=== PATIENT | male | born 1960 | race Caucasian/White ===

== ENCOUNTER 2022-03-08 16:58 | Inpatient (IN) ==
--- NOTE | 2022-03-08 17:51 | Internal Med History&Physical ---
HPI History of Present Illness Patient information: Note initiated : 03/08/22 at 5:48 pm Service Date, if different from initiated Date: [] Patient: Gaudencio Nichols a 61 y/o M admitted on for Hip Fracture . Chief Complaint: [fall with hip pain] Chief complaint: fall with hip pain History of present illness: Mr. Nichols is a 61 year old M history of drug abuse, hepatitis C, metastatic hepatic cell carcinoma, presenting with fall with right sided hip fracture. Patient fell about a week ago and today repeat imaging with PET CT as part of the cancer surveillance reviewed right hand femoral neck fracture. He was in [facility] ER and the ER physicians contacted the orthopedic surgeons Dr. Etienne who would be willing to do a nail fixations. Patient would be admitted to my service with Dr. Etienne be consulted for the surgical management. Physical therapy and occupational therapy will be consulted for post-surgical evaluation and assessment. Constitutional Constitutional: Absent chills, excessive sweating, fatigue, fever(s) or weakness EENT Eyes: Absent blurry vision, change in vision, loss of vision or other visual disturbances Ears: Absent decreased hearing or tinnitus Nose, mouth and throat: Absent abnormal hearing, dry mouth, headache(s), nasal congestion or sore throat Cardiovascular Cardiovascular: Absent chest pain, chest pain at rest, edema, irregular heart rhythm or palpatations Respiratory Respiratory: Absent cough, dyspnea or wheezing Gastrointestinal Gastrointestinal: Absent abdominal pain, constipation, diarrhea, nausea or vomiting Musculoskeletal Musculoskeletal: Present arthralgias, deformity and limited range of motion; Ab sent back pain, muscle cramps, muscle weakness or numbness Integumentary Integumentary: Absent lesions, rash or wounds Neurological Neurological: Absent focal weakness, headache(s) or numbness Psychiatric Psychiatric: Absent anxiety, depression or hallucinations PFSH PFSH All Active Problems (Updated 03/08/22 @ 17:56 by Erik Ni MD) Fracture of femoral neck, right, closed (Acute) Port-A-Cath in place (Chronic) Methamphetamine use (Chronic) History of tobacco use (Chronic) Depression (Chronic) History of hepatitis C (Chronic) Hypertension (Chronic) Liver cancer (Chronic) Spine pain (Chronic) Rib pain (Chronic) Balance problem (Chronic) Hand tingling (Chronic) Other low back pain (Chronic) Dizziness (Chronic) Back pain (Chronic) Sleeping difficulty (Chronic) Nausea (Chronic) Liver mass (Chronic) Pain in right femur (Chronic) Chronic viral hepatitis C (Chronic) Secondary malignant neoplasm of bone (Chronic) Liver cell carcinoma (Chronic) Medical History (Updated 03/08/22 @ 17:56 by Erik Ni MD) Back pain Balance problem Chronic viral hepatitis C Depression Dizziness Hand tingling History of hepatitis C History of tobacco use Hypertension Liver cancer Liver cell carcinoma Liver mass Methamphetamine use Nausea Other low back pain Pain in right femur Metastasis Port-A-Cath in place Rib pain Secondary malignant neoplasm of bone Sleeping difficulty Spine pain Surgical History (Updated 03/07/22 @ 06:59 by Sarah Miller) History of herniorrhaphy Family History (Updated 03/07/22 @ 07:00 by Sarah Miller) Mother Diabetes Social History (Updated 03/07/22 @ 07:01 by Sarah Miller) marital status: single education level: elementary school occupational status: disabled smoking status: Former smoker smoking status start date: 08/11/78 smoking status stop date: 08/11/18 alcohol intake frequency: does not drink substance use type: amphetamines MEDS/ALLERGIES Home Medications and Allergies Home Medications Medication Instructions Recorded Confirmed Type gabapentin 300 mg capsule 300 mg .Route .COMPLEX #90 caps 03/05/22 03/05/22 Rx (Neurontin) Allergies Allergy/AdvReac Type Severity Reaction Status Date / Time Penicillins Allergy Unknown Unknown Unverified 03/05/22 14:25 morphine sulfate Allergy Unknown Unknown Uncoded 03/05/22 14:25 EXAM Constitutional General appearance: cooperative and no acute distress Head Head exam: Present atraumatic and normocephalic Eye Eye exam: Present EOMI and PERRL ENT ENT exam: Present mucous membranes moist, normal exam and normal external ear exam Neck Neck exam: Present normal inspection; Absent lymphadenopathy, tenderness or thyromegaly Respiratory Respiratory exam: Absent accessory muscle use, respiratory distress or wheezes Cardiovascular Cardiovascular exam: Present normal rate and rhythm; Absent JVD GI/Abdominal GI/Abdominal exam: Present normal bowel sounds and soft; Absent organomegaly or tenderness Rectal Rectal exam: Present deferred Extremities Exam Extremities exam: Present normal capillary refill and tenderness; Absent full ROM or normal inspection Neurological Exam Neurological exam: Present alert, CN II-XII intact and oriented X3; Absent motor sensory deficit Psychiatric Psychiatric exam: Present normal affect and normal mood; Absent anxious or depressed Skin Skin exam: Present dry and intact A/P Assessment and plan (1) Chronic viral hepatitis C: Status: Chronic (2) Secondary malignant neoplasm of bone: Status: Chronic (3) Liver cell carcinoma: Status: Chronic (4) Fracture of femoral neck, right, closed: Status: Acute Narrative A/P Narrative: Assessment and Plans: 1. Right femoral neck pathologic fracture: Inpatient med surg Troponin and ECG Dr. Etienne for surgical management NPO with NS@100cc/hr Bedrest Tylenol PRN mild pain Oxycodone PRN moderate pain Dilaudid IV PRN severe pain Physical therapy Occupational therapy Case management consult 2. h/o hepatic cell carcinoma with metastasis: Continue outpatient follow up with oncology Fentanyl patch in addition to other narcotics used for the fracture 3. IV drug use: Will be very cautious about narcotics use; deescalate as soon as it is appropriate GI ppx: not currently indicated DVT ppx: SCDs Code status: Full Prognosis: stable Disposition: inpatient med surg Time Spent With Patient Time: Total time spent is greater than 50% in coordination of care (as documented) at patient's floor/unit and/or counseling patient: Total time spent with greater than 50% in coordination of care (as documented) at patient's floor/unit and/or counseling patient:: 50 - 70 minutes
[2022-03-08] MEDS ORDERED: ACETAMINOPHEN 325 MG TABLET PO PRN (19:07)
[2022-03-08] MEDS ORDERED: ONDANSETRON 4 MG/2 ML VIAL IV PRN ×2 (19:07→21:29)
[2022-03-08] MEDS ORDERED: IPRATROPIUM/ALBUTEROL 3 ML AMPUL.NEB NEB PRN ×2 (19:07→21:29)
[2022-03-08] MEDS ORDERED: traZODone HCL 50 MG TABLET PO PRN (19:07)
[2022-03-08] MEDS: 0.9 % SODIUM CHLORIDE 1,000 ML IV SCH ×2 (19:16→23:36)
[2022-03-08] MEDS: HYDROmorphone 0.5 MG/0.5 ML SYRINGE IV PRN ×2 (19:16→23:35)
[2022-03-08] MEDS ORDERED: HYDROmorphone 0.5 MG/0.5 ML SYRINGE ONE (19:22)
[2022-03-08] MEDS ORDERED: KETAMINE 50 MG/ML Syringe (ANEST) IV ONE (20:55)
[2022-03-08] MEDS ORDERED: GLYCOPYRROLATE 0.2 MG/ML VIAL IV ONE (20:55)
[2022-03-08] MEDS ORDERED: MIDAZOLAM 2 MG/2 ML VIAL ONE (20:55)
[2022-03-08] MEDS ORDERED: MAGNESIUM SULFATE 2 GM/50 ML BAG IV ONE (20:55)
[2022-03-08] MEDS ORDERED: ROPIVACAINE HCL/PF 20 ML VIAL IJ ONE (20:55)
[2022-03-08] MEDS ORDERED: SUGAMMADEX SODIUM 200 MG/2 ML VIAL IV ONE (20:55)
[2022-03-08] MEDS ORDERED: HYDROmorphone 1 MG/ML SYRINGE ONE (20:55)
[2022-03-08] MEDS ORDERED: ONDANSETRON 4 MG/2 ML VIAL ONE (20:55)
[2022-03-08] MEDS ORDERED: fentaNYL 100 MCG/2 ML VIAL IV ONE (20:55)
[2022-03-08] MEDS ORDERED: LIDOCAINE HCL/PF 100 MG/5 ML SYRINGE IV ONE (20:55)
[2022-03-08] MEDS ORDERED: methylPREDNISolone SOD SUCC 125 MG/2 ML VIAL ONE (20:55)
[2022-03-08] MEDS ORDERED: ROCURONIUM 10 MG/ML ML IV ONE (20:55)
[2022-03-08] MEDS ORDERED: TRANEXAMIC ACID 1,000 MG/10 ML VIAL ONE (20:55)
[2022-03-08] MEDS ORDERED: PROPOFOL 200 MG/20 ML VIAL IV ONE (20:55)
[2022-03-08] MEDS ORDERED: DEXAMETHASONE 10 MG/ML VIAL ONE (20:55)
[2022-03-08] MEDS ORDERED: ceFAZolin 2 GM in DEXTROSE 5% IN WATER 50 ML IV SCH (21:00)
[2022-03-08] MEDS ORDERED: METOCLOPRAMIDE 10 MG/2 ML VIAL IV PRN (21:29)
[2022-03-08] MEDS ORDERED: MEPERIDINE 25 MG/ML VIAL IV PRN (21:29)
[2022-03-08] MEDS ORDERED: METHOCARBAMOL 1,000 MG/10 ML VIAL IV PRN (21:29)
[2022-03-08] MEDS ORDERED: LACTATED RINGERS 250 ML IV PRN (21:29)
[2022-03-08] MEDS ORDERED: fentaNYL 100 MCG/2 ML VIAL IV PRN (21:29)
[2022-03-08] MEDS ORDERED: KETOROLAC 30 MG/ML VIAL IV PRN (21:29)
[2022-03-08] MEDS ORDERED: NALOXONE HCL 0.4 MG/ML VIAL IV PRN (21:29)
[2022-03-08] MEDS ORDERED: ACETAMINOPHEN 1,000 MG/100 ML BAG IV ONE (21:29)
[2022-03-08] MEDS ORDERED: HYDROmorphone 0.5 MG/0.5 ML SYRINGE IV PRN (21:29)
[2022-03-08] MEDS ORDERED: MEPERIDINE 50 MG/ML VIAL IM PRN (21:29)
[2022-03-08] MEDS ORDERED: PROMETHAZINE 25 MG/ML VIAL IV PRN (21:29)
[2022-03-08] MEDS ORDERED: PROMETHAZINE 25 MG/ML VIAL IM PRN (21:29)
[2022-03-08] MEDS ORDERED: FLUMAZENIL 0.1 MG/ML ML IV PRN (21:29)
[2022-03-08] MEDS ORDERED: METOPROLOL TARTRATE 5 MG/5 ML VIAL IV PRN (21:29)
[2022-03-08] MEDS ORDERED: LACTATED RINGERS 1,000 ML IV SCH (21:30)
[2022-03-08] MEDS ORDERED: KETOROLAC 60 MG/2 ML VIAL IM ONE (21:32)
[2022-03-08] MEDS ORDERED: POLYETHYLENE GLYCOL 3350 17 GM PACKET PO PRN (21:59)
[2022-03-08] MEDS ORDERED: FLEETS ADULT ENEMA PR PRN (21:59)
[2022-03-08] MEDS ORDERED: BISACODYL 10 MG SUPP.RECT PR PRN (21:59)
--- NOTE | 2022-03-08 21:59 | Brief Operative Note ---
Brief Operative Note Date of procedure: 03/08/22 Pre-op diagnosis: Right pathologic base of femoral neck fracture Post-op diagnosis: same Procedure: Open treatment internal fixation of right base of neck hip fracture with intramedullary fixation Grafts/Implants: Yes (Van Lear gamma [id number] odalys, 100 lag screw) Anesthesia: GLMA Findings: base of neck fracture Complications: none Surgeon: Juan Swain Court Specialist: Willian Lemos Estimated blood loss (cc): 150 Specimens Removed/Pathology: none sent Condition: stable Disposition: PACU Operative Note Operative Note: Name of the operating practitioner/proceduralist: [Surgeon] Assistants: [auction assistant] Procedure performed: [Procedure] Preoperative diagnosis: [pre-op dx] Postoperative diagnosis: [Post-op dx] Findings: [detail] Specimens removed: [none] Estimated blood loss (cc): [#] Any complications: [details] Detailed account of the findings at surgery: [details] Details of the surgical technique: [details]
[2022-03-08] MEDS ORDERED: METHOCARBAMOL 1,000 MG/10 ML VIAL ONE (23:06)
[2022-03-08] MEDS: SENNOSIDES 1 TABLET PO SCH (23:33)
[2022-03-08] MEDS: DOCUSATE SODIUM 100 MG CAPSULE PO SCH (23:35)
[2022-03-08] MEDS: 0.9 % SODIUM CHLORIDE 10 ML SYRINGE IV SCH (23:37)
[2022-03-09] MEDS: HYDROmorphone 0.5 MG/0.5 ML SYRINGE IV PRN ×6 (03:10→19:37)
[2022-03-09] MEDS ORDERED: ceFAZolin 2 GM in DEXTROSE 5% IN WATER 50 ML IV SCH (05:00)
[2022-03-09] MEDS ORDERED: ceFAZolin 1 GM VIAL ONE ×2 (05:15→07:23)
[2022-03-09] MEDS: ceFAZolin 2 GM in DEXTROSE 5% IN WATER 50 ML IV SCH ×2 (05:26→07:18)
[2022-03-09] MEDS: 0.9 % SODIUM CHLORIDE 10 ML SYRINGE IV SCH ×3 (05:28→22:13)
[2022-03-09] MEDS: 0.9 % SODIUM CHLORIDE 1,000 ML IV SCH ×3 (05:28→19:36)
[2022-03-09] MEDS: oxyCODONE HCL 5 MG TABLET PO PRN ×2 (05:57→17:03)
[2022-03-09 06:13] LABS: Basophils # (Auto) 0.01 K/mcL (0.00-0.30); Basophils % (Auto) 0.1 % (0.0-2.0); Eosinophils # (Auto) 0 K/mcL (0.00-0.70); Eosinophils % (Auto) 0 % (0.0-7.0); Hematocrit 40.2 % (40.1-51.0); Hemoglobin 13.8 g/dL (13.7-17.5); Lymphocytes % (Auto) 3.8 % (15.5-49.0); Mean Cell Volume 89.9 fL (80.0-100.0); Mean Corpuscular HGB Conc 34.3 g/dL (31.0-36.0); Mean Platelet Volume 9.8 fL (7.4-10.4); Monocytes # (Auto) 0.19 K/mcL (0.10-0.90); Monocytes % (Auto) 1.8 % (1.0-12.0); Neutrophils % (Auto) 93.9 % (38.0-78.0); Platelet Count 172 K/mcL (140-440); RBC 4.47 M/mcL (4.63-6.08); Red Cell Distribution Width 12.4 % (11.5-14.5); WBC 10.5 K/mcL (4.5-11.0)
[2022-03-09 06:38] LABS: Blood Urea Nitrogen 12 mg/dL (6-20); Calcium 9.4 mg/dL (8.6-10.4); Carbon Dioxide 25 mmol/L (22-30); Chloride 99 mmol/L (96-108); Glomerular Filtration Rate 103; Glucose 214 mg/dL (70-105)
--- NOTE | 2022-03-09 08:46 | XRay Report ---
HISTORY: FINDINGS: IMPRESSION: 0.9 minutes of fluoroscopy time was used Interpreted and Authenticated by: Anders Byrd 03/09/22
--- NOTE | 2022-03-09 09:04 | Orthopedic Progress Note ---
SUBJECTIVE Subjective Patient information: Note initiated : 03/09/22 at 9:02 am Service Date, if different from initiated Date: [] Patient: Gaudencio Nichols 61 y/o M admitted on 03/08/22 for Hip Fracture . Chief Complaint: Mild to moderate pain. Pt concerned about cancer dx. Constitutional Vitals: Vital Signs Temp Pulse Resp BP Pulse Ox O2 Del Method O2 Flow Rate 98 F 81 20 162/104 97 1 03/09/22 07:10 03/09/22 07:10 03/09/22 07:10 03/09/22 07:10 03/09/22 07:10 03/09/22 07:10 03/09/22 07:45 Period Temp Pulse Resp BP Sys/Fowler Pulse Ox O2 Del Method O2 Flow Rate Last 24 Hr 97.3 F-98.6 F 73-90 14-20 125-163/81-111 94-100 Nasal Cannula- Room Air 1-6 Intake and Output 03/08/22 03/09/22 03/09/22 21:59 05:59 13:59 Intake Total 50 1187 290 Output Total 1175 Balance 50 12 290 Weight 190 lb Intake & Output: Intake & Output 03/08/22 03/09/22 03/09/22 21:59 05:59 13:59 Intake Total 50 1187 290 Output Total 1175 Balance 50 12 290 Weight 190 lb Intake: IV 50 533 50 Sodium Chloride 0.9% 1,000 ml @ 433 100 mls/hr IV .Q10H [facility] Rx#: [id number] Ancef 2 gm In Dextrose 5% in 50 50 Water 50 ml @ 100 mls/hr IV Q8H [facility] Rx#:[id number] Oral 654 240 Output: Urine Catheter Amount 675 Straight 675 Void Amount 500 Other: Meal Breakfast Percent of Meal Consumed 100% Feeding Ability Independent Urine Appearance Clear Straight Clear Urine Color Bright Yellow Straight Dark Yellow OBJ DATA Labs CBC & Chem 7: 03/09/22 05:35 03/09/22 05:35 Labs: Abnormal Lab Results 03/09/22 03/09/22 03/08/22 05:35 05:35 19:19 RBC 4.47 L Neut % (Auto) 93.9 H Lymph % (Auto) 3.8 L Lymph # (Auto) 0.40 L Absolute Neutrophils 9.90 H Glucose 214 H POC Troponin I 0 L Bandages c/d/i NVI-distal Meds: Medications Acetaminophen (Acetaminophen 325 Mg Tablet) 650 mg PO Q6HP PRN; Protocol PRN Reason: Per Pain Protocol/Fever > 101 Albuterol/Ipratropium (Ipratropium/Albuterol 3 Ml Ampul.Neb) 3 ml NEB Q4HRT PRN PRN Reason: Wheezing Bisacodyl (Bisacodyl 10 Mg Supp.Rect) 10 mg SD Q2-3DAYS PRN PRN Reason: Constipation Cefazolin Sodium (Cefazolin 1 Gm Vial) 2 gm IV Q8H [facility] Stop: 03/09/22 13:01 Docusate Sodium (Docusate Sodium 100 Mg Capsule) 100 mg PO BID [facility] Last Admin: 03/08/22 23:35 Dose: 100 mg Heparin Sodium (Porcine) (Heparin 5,000 Unit/Ml Vial) 5,000 unit SQ Q12 [facility] Hydromorphone HCl (Hydromorphone 0.5 Mg/0.5 Ml Syringe) 0.5 mg IV Q2HP PRN; Protocol PRN Reason: Per Pain Protocol Last Admin: 03/09/22 07:19 Dose: 0.5 mg Sodium Chloride (Sodium Chloride 0.9%) 1,000 mls @ 100 mls/hr IV .Q10H [facility] Last Admin: 03/09/22 05:28 Dose: Not Given Morphine Sulfate (Morphine 4 Mg/Ml Vial) 0 mg IV Q1HP PRN; Protocol PRN Reason: Per Pain Protocol Ondansetron HCl (Ondansetron 4 Mg/2 Ml Vial) 4 mg IV Q6HP PRN PRN Reason: Nausea And Vomiting Oxycodone HCl (Oxycodone Hcl 5 Mg Tablet) 10 mg PO Q4HP PRN; Protocol PRN Reason: Per Pain Protocol Last Admin: 03/09/22 05:57 Dose: 10 mg Polyethylene Glycol (Polyethylene Glycol 3350 17 Gm Packet) 17 gm PO DAILYP PRN PRN Reason: Constipation Senna (Sennosides 1 Tablet) 2 tab PO HS [facility] Last Admin: 03/08/22 23:33 Dose: 2 tab Sodium Biphosphate/Sodium Phosphate (Fleets Adult Enema) 1 dose SD Q3-4DAYS PRN PRN Reason: Constipation Sodium Chloride (0.9 % Sodium Chloride 10 Ml Syringe) 10 ml IV Q8 [facility] Last Admin: 03/09/22 05:28 Dose: Not Given Trazodone HCl (Trazodone Hcl 50 Mg Tablet) 25 mg PO HSP PRN PRN Reason: Insomnia Impressions Impression: 1 day s/p R hip IM nail for pathologic hip fx-stable A/P Narrative Plan of Treatment: Mobilize with PT tentative discharge planning per case management/hospitalist. Time Spent With Patient Time: Total time spent is greater than 50% in coordination of care (as documented) at patient's floor/unit and/or counseling patient: Total time spent with greater than 50% in coordination of care (as documented) at patient's floor/unit and/or counseling patient:: less than 15 minutes
[2022-03-09] MEDS: ceFAZolin 1 GM VIAL IV SCH ×2 (09:40→12:48)
--- NOTE | 2022-03-09 09:42 | XRay Report ---
HISTORY: Postop repair of intertrochanteric right hip fracture FINDINGS: There is good alignment following open reduction internal fixation of the intertrochanteric fracture. There is a long intramedullary nail which extends from the top of the greater trochanter to the distal metaphyseal region of the femur. There is a crossing pin extending into the femoral head and neck. The varus angulation seen preoperatively has been corrected. No new fracture has developed. Right hip joint space is normal in width and alignment. IMPRESSION: good alignment following internal fixation of the intertrochanteric fracture Interpreted and Authenticated by: Anders Byrd 03/09/22
[2022-03-09] MEDS: DOCUSATE SODIUM 100 MG CAPSULE PO SCH ×2 (10:15→20:02)
[2022-03-09] MEDS ORDERED: ALBUTEROL SULFATE 200 PUFF INHALER INH PRN (10:26)
--- NOTE | 2022-03-09 10:41 | Internal Med Progress Note ---
SUBJECTIVE Subjective Patient information: Note initiated : 03/09/22 at 10:37 am Service Date, if different from initiated Date: [] Patient: Gaudencio Nichols a 61 y/o M admitted on 03/08/22 for Hip Fracture . Chief Complaint: [] Interval history: Mr. Nichols is a 61 year old M history of drug abuse, hepatitis C, metastatic hepatic cell carcinoma, presenting with fall with right sided hip fracture. Patient fell about a week ago and today repeat imaging with PET CT as part of the cancer surveillance reviewed right hand femoral neck fracture. He was in same area ER and the ER physicians contacted the orthopedic surgeons Dr. Etienne who would be willing to do a nail fixations. Patient would be admitted to my service with Dr. Etienne be consulted for the surgical management. Physical therapy and occupational therapy will be consulted for post-surgical evaluation and assessment. 03/09: s/p IM nail placement by Dr. Etienne for right hip pathologic fracture 03/08. Patient is c/o 8/10 sharp pain of his right hip. Denies SOB. Denies c onstipation. Increase Dilaudid from 0.5 to 1mg IV q2hr PRN severe pain. Also have Fentanyl patch and oxycodone for better symptoms control. Continue physical therapy evaluation and treatment and for placement planning. Constitutional Vitals: Vital Signs Temp Pulse Resp BP Pulse Ox O2 Del Method O2 Flow Rate 36.6 C 81 20 162/104 97 1 03/09/22 07:10 03/09/22 07:10 03/09/22 07:10 03/09/22 07:10 03/09/22 07:10 03/09/22 07:10 03/09/22 07:45 Period Temp Pulse Resp BP Sys/Fowler Pulse Ox O2 Del Method O2 Flow Rate Last 24 Hr 36.3 C-37.0 C 73-90 14-20 125-163/81-111 94-100 Nasal Cannula- Room Air 1-6 Intake and Output 03/08/22 03/09/22 03/09/22 21:59 05:59 13:59 Intake Total 50 1187 1290 Output Total 1175 Balance 50 12 1290 Weight 86.183 kg Intake & Output: Intake & Output 03/08/22 03/09/22 03/09/22 21:59 05:59 13:59 Intake Total 50 1187 1290 Output Total 1175 Balance 50 12 1290 Weight 86.183 kg Intake: IV 50 533 1050 Sodium Chloride 0.9% 1,000 ml @ 433 1000 100 mls/hr IV .Q10H [facility] Rx#: [id number] Ancef 2 gm In Dextrose 5% in 50 50 Water 50 ml @ 100 mls/hr IV Q8H [facility] Rx#:[id number] Oral 654 240 Output: Urine Catheter Amount 675 Straight 675 Void Amount 500 Other: Meal Breakfast Percent of Meal Consumed 100% Feeding Ability Independent Urine Appearance Clear Straight Clear Urine Color Bright Yellow Straight Dark Yellow Head Head exam: Present atraumatic and normal inspection Eye Eye exam: Present normal appearance ENT ENT exam: Present mucous membranes moist, normal exam and normal external ear exam Neck Neck exam: Present normal inspection Respiratory Respiratory exam: Present normal respiratory exam Cardiovascular Cardiovascular exam: Present normal rate and rhythm GI/Abdominal GI/Abdominal exam: Present normal bowel sounds Extremities Exam Extremities exam: Absent full ROM or normal inspection Additional comments: Right lateral hip covered by surgical dressing. Tenderness to palpation. Active and passive ROMs limited by pain Back Exam Back exam: Present normal inspection Neurological Exam Neurological exam: Present alert and oriented X3 Skin Skin exam: Present intact and warm OBJ DATA Labs CBC & Chem 7: 03/09/22 05:35 03/09/22 05:35 Labs: Abnormal Lab Results 03/09/22 03/09/22 03/08/22 05:35 05:35 19:19 RBC 4.47 L Neut % (Auto) 93.9 H Lymph % (Auto) 3.8 L Lymph # (Auto) 0.40 L Absolute Neutrophils 9.90 H Glucose 214 H POC Troponin I 0 L Meds: Medications Acetaminophen (Acetaminophen 325 Mg Tablet) 650 mg PO Q6HP PRN; Protocol PRN Reason: Per Pain Protocol/Fever > 101 Albuterol Sulfate (Albuterol Sulfate 200 Puff Inhaler) 2 puff INH Q6H PRN PRN Reason: Shortness of breath Albuterol/Ipratropium (Ipratropium/Albuterol 3 Ml Ampul.Neb) 3 ml NEB Q4HRT PRN PRN Reason: Wheezing Bisacodyl (Bisacodyl 10 Mg Supp.Rect) 10 mg DE Q2-3DAYS PRN PRN Reason: Constipation Cefazolin Sodium (Cefazolin 1 Gm Vial) 2 gm IV Q8H [facility] Stop: 03/09/22 13:01 Last Admin: 03/09/22 09:40 Dose: Not Given Docusate Sodium (Docusate Sodium 100 Mg Capsule) 100 mg PO BID [facility] Last Admin: 03/09/22 10:15 Dose: 100 mg Heparin Sodium (Porcine) (Heparin 5,000 Unit/Ml Vial) 5,000 unit SQ Q12 [facility] Hydrochlorothiazide (Hydrochlorothiazide 12.5 Mg Capsule) 12.5 mg PO QDAY [facility] Hydromorphone HCl (Hydromorphone 0.5 Mg/0.5 Ml Syringe) 1 mg IV Q2HP PRN; Protocol PRN Reason: Per Pain Protocol Sodium Chloride (Sodium Chloride 0.9%) 1,000 mls @ 100 mls/hr IV .Q10H [facility] Last Admin: 03/09/22 09:41 Dose: 100 mls/hr Lisinopril (Lisinopril 20 Mg Tablet) 40 mg PO QDAY [facility] Morphine Sulfate (Morphine 4 Mg/Ml Vial) 0 mg IV Q1HP PRN; Protocol PRN Reason: Per Pain Protocol Non-Formulary Medication (Fentanyl) 62.5 mcg TRANSDERMA Q72H [facility] Ondansetron HCl (Ondansetron 4 Mg/2 Ml Vial) 4 mg IV Q6HP PRN PRN Reason: Nausea And Vomiting Oxycodone HCl (Oxycodone Hcl 5 Mg Tablet) 10 mg PO Q4HP PRN; Protocol PRN Reason: Per Pain Protocol Last Admin: 03/09/22 05:57 Dose: 10 mg Promethazine 6.25 Mg (/5 Ml Syrup) 6.25 dose PO Q6 PRN PRN Reason: as needed for cough Sofosbuvir- Velpatasvir 400-100 Mg Tablet 1 dose PO QDAY [facility] Polyethylene Glycol (Polyethylene Glycol 3350 17 Gm Packet) 17 gm PO DAILYP PRN PRN Reason: Constipation Senna (Sennosides 1 Tablet) 2 tab PO HS [facility] Last Admin: 03/08/22 23:33 Dose: 2 tab Sodium Biphosphate/Sodium Phosphate (Fleets Adult Enema) 1 dose DE Q3-4DAYS PRN PRN Reason: Constipation Sodium Chloride (0.9 % Sodium Chloride 10 Ml Syringe) 10 ml IV Q8 [facility] Last Admin: 07/30/22 05:28 Dose: Not Given Tamsulosin HCl (Tamsulosin 0.4 Mg Capsule) 0.4 mg PO QDAY [facility] Trazodone HCl (Trazodone Hcl 50 Mg Tablet) 25 mg PO HSP PRN PRN Reason: Insomnia A/P Assessment and plan (1) Chronic viral hepatitis C: Status: Chronic (2) Secondary malignant neoplasm of bone: Status: Chronic (3) Liver cell carcinoma: Status: Chronic (4) Fracture of femoral neck, right, closed: Status: Acute (5) Hypertension: Status: Chronic (6) BPH (benign prostatic hyperplasia): Status: Acute Narrative A/P Narrative: Assessment and Plans: 1. Right femoral neck pathologic fracture: s/p IM nail placement by Dr. Etienne 03/08, post-surgical care as per surgical team Inpatient med surg Bedrest Tylenol PRN mild pain Fentanyl patch daily Oxycodone PRN moderate pain Dilaudid 1mg IV q2hr PRN severe pain Physical therapy Occupational therapy Case management consult 2. h/o hepatic cell carcinoma with metastasis: Continue outpatient follow up with oncology Fentanyl patch in addition to other narcotics used for the fracture 3. IV drug use: Will be very cautious about narcotics use; deescalate as soon as it is appropriate 4. Essential HTN: Normotensive currently Resume home regimen of oral diuretics and antihypertensives 5. h/o BPH: Continue Flomax GI ppx: not currently indicated DVT ppx: SCDs Code status: Full Prognosis: stable Disposition: inpatient med surg Plan of Treatment: Mobilize with PT tentative discharge planning per case management/hospitalist. Time Spent With Patient Time: Total time spent is greater than 50% in coordination of care (as documented) at patient's floor/unit and/or counseling patient: Total time spent with greater than 50% in coordination of care (as documented) at patient's floor/unit and/or counseling patient:: 35 - 50 minutes QUALITY VTE Deep Vein Thrombosis/Pulmonary Embolism Present on Admission: No
[2022-03-09] MEDS: LISINOPRIL 20 MG TABLET PO SCH (10:46)
[2022-03-09] MEDS: HYDROCHLOROTHIAZIDE 12.5 MG CAPSULE PO SCH (10:46)
[2022-03-09] MEDS ORDERED: fentaNYL 75 MCG PATCH TOPICAL SCH (11:00)
[2022-03-09] MEDS: hydrALAZINE 20 MG/ML VIAL IV PRN (12:07)
[2022-03-09] MEDS ORDERED: ALPRAZolam 0.5 MG TABLET PO PRN (13:19)
[2022-03-09] MEDS: HEPARIN 5,000 UNIT/ML VIAL SQ SCH (20:02)
[2022-03-09] MEDS: SENNOSIDES 1 TABLET PO SCH (20:02)
[2022-03-10] MEDS: oxyCODONE HCL 5 MG TABLET PO PRN ×5 (00:05→23:35)
[2022-03-10] MEDS: 0.9 % SODIUM CHLORIDE 1,000 ML IV SCH ×3 (01:20→23:37)
[2022-03-10] MEDS: HYDROmorphone 0.5 MG/0.5 ML SYRINGE IV PRN ×6 (02:19→17:46)
[2022-03-10] MEDS: 0.9 % SODIUM CHLORIDE 10 ML SYRINGE IV SCH ×3 (05:20→21:18)
[2022-03-10 06:44] LABS: Basophils # (Auto) 0.03 K/mcL (0.00-0.30); Basophils % (Auto) 0.2 % (0.0-2.0); Eosinophils # (Auto) 0.05 K/mcL (0.00-0.70); Eosinophils % (Auto) 0.4 % (0.0-7.0); Hematocrit 38.1 % (40.1-51.0); Hemoglobin 12.6 g/dL (13.7-17.5); Lymphocytes # (Auto) 1.95 K/mcL (1.50-4.80); Lymphocytes % (Auto) 15.1 % (15.5-49.0); Mean Cell Volume 91.4 fL (80.0-100.0); Mean Corpuscular HGB Conc 33.1 g/dL (31.0-36.0); Mean Platelet Volume 9.8 fL (7.4-10.4); Neutrophils % (Auto) 76.9 % (38.0-78.0); Platelet Count 170 K/mcL (140-440); RBC 4.17 M/mcL (4.63-6.08); Red Cell Distribution Width 12.5 % (11.5-14.5); WBC 12.9 K/mcL (4.5-11.0)
[2022-03-10 07:07] LABS: Blood Urea Nitrogen 13 mg/dL (6-20); Calcium 9.2 mg/dL (8.6-10.4); Carbon Dioxide 27 mmol/L (22-30); Chloride 101 mmol/L (96-108); Glomerular Filtration Rate 118; Glucose 90 mg/dL (70-105)
[2022-03-10] MEDS: HYDROCHLOROTHIAZIDE 12.5 MG CAPSULE PO SCH (08:13)
[2022-03-10] MEDS: HEPARIN 5,000 UNIT/ML VIAL SQ SCH ×2 (08:13→21:17)
[2022-03-10] MEDS: LISINOPRIL 20 MG TABLET PO SCH (08:13)
[2022-03-10] MEDS: TAMSULOSIN 0.4 MG CAPSULE PO SCH (08:13)
[2022-03-10] MEDS: DOCUSATE SODIUM 100 MG CAPSULE PO SCH ×2 (10:09→21:17)
[2022-03-10] MEDS: SOFOSBUVIR VELPATASVIR PO SCH (10:09)
[2022-03-10] MEDS ORDERED: CYCLOBENZAPRINE 10 MG TABLET PO PRN (11:46)
--- NOTE | 2022-03-10 11:50 | Internal Med Progress Note ---
SUBJECTIVE Subjective Patient information: Note initiated : 03/10/22 at 11:46 am Service Date, if different from initiated Date: [] Patient: Gaudencio Nichols a 61 y/o M admitted on 03/08/22 for Hip Fracture . Chief Complaint: [] Interval history: Mr. Nichols is a 61 year old M history of drug abuse, hepatitis C, metastatic hepatic cell carcinoma, presenting with fall with right sided hip fracture. Patient fell about a week ago and today repeat imaging with PET CT as part of the cancer surveillance reviewed right hand femoral neck fracture. He was in same area ER and the ER physicians contacted the orthopedic surgeons Dr. Etienne who would be willing to do a nail fixations. Patient would be admitted to my service with Dr. Etienne be consulted for the surgical management. Physical therapy and occupational therapy will be consulted for post-surgical evaluation and assessment. 03/09: s/p IM nail placement by Dr. Etienne for right hip pathologic fracture 03/08. Patient is c/o 8/10 sharp pain of his right hip. Denies SOB. Denies c onstipation. Increase Dilaudid from 0.5 to 1mg IV q2hr PRN severe pain. Also have Fentanyl patch and oxycodone for better symptoms control. Continue physical therapy evaluation and treatment and for placement planning. 03/10: s/p /10 pain of the right pain. No bowel movement overnight. OT recs. home when discharged. Add cyclobenzaprine PRN muscle spasm. Continue Fentanyl patch, oxycodone, and Dilaudid IV PRN different severity of pain. Continue laxative/stool softeners PRN constipation. Will keep patient in hospital for better pain control before discharging home. Constitutional Vitals: Vital Signs Temp Pulse Resp BP Pulse Ox O2 Del Method O2 Flow Rate 36.4 C 82 14 168/102 96 2 03/10/22 08:00 03/10/22 08:00 03/10/22 08:00 03/10/22 08:00 03/10/22 08:00 03/10/22 04:25 03/09/22 15:42 Period Temp Pulse Resp BP Sys/Fowler Pulse Ox O2 Del Method O2 Flow Rate Last 24 Hr 36.3 C-37.4 C 82-90 14-19 143-179/95-110 94-97 Nasal Cannula- Room Air 2 Intake and Output 03/09/22 03/10/22 03/10/22 21:59 05:59 13:59 Intake Total 992 2100 Output Total 1825 1300 875 Balance -833 800 -875 Weight 86.183 kg Intake & Output: Intake & Output 03/09/22 03/10/22 03/10/22 21:59 05:59 13:59 Intake Total 992 2100 Output Total 1825 1300 875 Balance -833 800 -875 Weight 86.183 kg Intake: IV 992 1000 Sodium Chloride 0.9% 1,000 ml @ 992 1000 100 mls/hr IV .Q10H [facility] Rx#: [id number] Oral 1100 Output: Void Amount 1825 1300 875 Other: Meal Nourishment/Supplement Breakfast Percent of Meal Consumed 100% 100% Feeding Ability Independent Independent Urine Appearance Clear Clear Urine Color Bright Yellow Dark Yellow Urine Odor Normal General appearance: average body habitus, cooperative and no acute distress Head Head exam: Present atraumatic and normal inspection Eye Eye exam: Present normal appearance ENT ENT exam: Present mucous membranes moist, normal exam and normal external ear exam Neck Neck exam: Present normal inspection Respiratory Respiratory exam: Present normal respiratory exam Cardiovascular Cardiovascular exam: Present normal rate and rhythm GI/Abdominal GI/Abdominal exam: Present normal bowel sounds Extremities Exam Extremities exam: Absent full ROM or normal inspection Additional comments: Right lateral hip covered by surgical dressing Back Exam Back exam: Present normal inspection Neurological Exam Neurological exam: Present alert and oriented X3 Skin Skin exam: Present intact and warm OBJ DATA Labs CBC & Chem 7: 03/10/22 05:36 03/10/22 05:36 Labs: Abnormal Lab Results 03/10/22 03/10/22 03/09/22 05:36 05:36 05:35 WBC 12.9 H RBC 4.17 L Hgb 12.6 L Hct 38.1 L Neut % (Auto) Lymph % (Auto) 15.1 L Lymph # (Auto) Absolute Neutrophils 10.01 H Creatinine 0.5 L Glucose 214 H POC Troponin I 03/09/22 03/08/22 05:35 19:19 WBC RBC 4.47 L Hgb Hct Neut % (Auto) 93.9 H Lymph % (Auto) 3.8 L Lymph # (Auto) 0.40 L Absolute Neutrophils 9.90 H Creatinine Glucose POC Troponin I 0 L Meds: Medications Acetaminophen (Acetaminophen 325 Mg Tablet) 650 mg PO Q6HP PRN; Protocol PRN Reason: Per Pain Protocol/Fever > 101 Albuterol Sulfate (Albuterol Sulfate 200 Puff Inhaler) 2 puff INH Q6H PRN PRN Reason: Shortness of breath Albuterol/Ipratropium (Ipratropium/Albuterol 3 Ml Ampul.Neb) 3 ml NEB Q4HRT PRN PRN Reason: Wheezing Alprazolam (Alprazolam 0.5 Mg Tablet) 1 mg PO QIDP PRN PRN Reason: Anxiety Bisacodyl (Bisacodyl 10 Mg Supp.Rect) 10 mg [place] Q2-3DAYS PRN PRN Reason: Constipation Docusate Sodium (Docusate Sodium 100 Mg Capsule) 100 mg PO BID [facility] Last Admin: 03/10/22 10:09 Dose: 100 mg Fentanyl (Fentanyl 75 Mcg Patch) 75 mcg TOPICAL Q72H [facility] Last Admin: 03/09/22 11:47 Dose: 75 mcg Heparin Sodium (Porcine) (Heparin 5,000 Unit/Ml Vial) 5,000 unit SQ Q12 [facility] Last Admin: 03/10/22 08:13 Dose: 5,000 unit Hydralazine HCl (Hydralazine 20 Mg/Ml Vial) 10 mg IV Q4-6HP PRN PRN Reason: Hypertension Last Admin: 03/09/22 12:07 Dose: 10 mg Hydrochlorothiazide (Hydrochlorothiazide 12.5 Mg Capsule) 12.5 mg PO QDAY [facility] Last Admin: 03/10/22 08:13 Dose: 12.5 mg Hydromorphone HCl (Hydromorphone 0.5 Mg/0.5 Ml Syringe) 1 mg IV Q2HP PRN; Protocol PRN Reason: Per Pain Protocol Last Admin: 03/10/22 11:30 Dose: 1 mg Sodium Chloride (Sodium Chloride 0.9%) 1,000 mls @ 100 mls/hr IV .Q10H [facility] Last Admin: 03/10/22 11:30 Dose: 100 mls/hr Lisinopril (Lisinopril 20 Mg Tablet) 40 mg PO QDAY [facility] Last Admin: 03/10/22 08:13 Dose: 40 mg Morphine Sulfate (Morphine 4 Mg/Ml Vial) 0 mg IV Q1HP PRN; Protocol PRN Reason: Per Pain Protocol Ondansetron HCl (Ondansetron 4 Mg/2 Ml Vial) 4 mg IV Q6HP PRN PRN Reason: Nausea And Vomiting Oxycodone HCl (Oxycodone Hcl 5 Mg Tablet) 10 mg PO Q4HP PRN; Protocol PRN Reason: Per Pain Protocol Last Admin: 03/10/22 08:14 Dose: 10 mg Promethazine 6.25 Mg (/5 Ml Syrup) 6.25 dose PO Q6 PRN PRN Reason: as needed for cough Sofosbuvir- Velpatasvir 400-100 Mg Tablet 1 dose PO QDAY [facility] Last Admin: 03/10/22 10:09 Dose: Not Given Polyethylene Glycol (Polyethylene Glycol 3350 17 Gm Packet) 17 gm PO DAILYP PRN PRN Reason: Constipation Senna (Sennosides 1 Tablet) 2 tab PO HS [facility] Last Admin: 03/09/22 20:02 Dose: 2 tab Sodium Biphosphate/Sodium Phosphate (Fleets Adult Enema) 1 dose [place] Q3-4DAYS PRN PRN Reason: Constipation Sodium Chloride (0.9 % Sodium Chloride 10 Ml Syringe) 10 ml IV Q8 [facility] Last Admin: 03/10/22 05:20 Dose: Not Given Tamsulosin HCl (Tamsulosin 0.4 Mg Capsule) 0.4 mg PO QDAY [facility] Last Admin: 03/10/22 08:13 Dose: 0.4 mg Trazodone HCl (Trazodone Hcl 50 Mg Tablet) 25 mg PO HSP PRN PRN Reason: Insomnia A/P Assessment and plan (1) Chronic viral hepatitis C: Status: Chronic (2) Secondary malignant neoplasm of bone: Status: Chronic (3) Liver cell carcinoma: Status: Chronic (4) Fracture of femoral neck, right, closed: Status: Acute (5) Hypertension: Status: Chronic (6) BPH (benign prostatic hyperplasia): Status: Acute Narrative A/P Narrative: Assessment and Plans: 1. Right femoral neck pathologic fracture: s/p IM nail placement by Dr. Etienne 03/08, post-surgical care as per surgical team Inpatient med surg Bedrest Tylenol PRN mild pain Fentanyl patch daily Oxycodone PRN moderate pain Dilaudid 1mg IV q2hr PRN severe pain Physical therapy Occupational therapy-->recs. home when stable Case management consult Heparin as DVT ppx 2. h/o hepatic cell carcinoma with metastasis: Continue outpatient follow up with oncology Fentanyl patch in addition to other narcotics used for the fracture 3. IV drug use: Will be very cautious about narcotics use; deescalate as soon as it is appropriate 4. Essential HTN: Normotensive currently Resume home regimen of oral diuretics and antihypertensives 5. h/o BPH: Continue Flomax GI ppx: not currently indicated DVT ppx: Heparin Code status: Full Prognosis: stable Disposition: inpatient med surg Plan of Treatment: Mobilize with PT tentative discharge planning per case management/hospitalist. Time Spent With Patient Time: Total time spent is greater than 50% in coordination of care (as documented) at patient's floor/unit and/or counseling patient: Total time spent with greater than 50% in coordination of care (as documented) at patient's floor/unit and/or counseling patient:: 35 - 50 minutes QUALITY VTE Deep Vein Thrombosis/Pulmonary Embolism Present on Admission: No
[2022-03-10] MEDS: hydrALAZINE 20 MG/ML VIAL IV PRN (12:10)
--- NOTE | 2022-03-10 16:06 | Discharge Summary ---
Discharge Provider Provider IMPORTANT FOLLOW-UP INFORMATION FOR PCP: May remove lamar at 2 weeks if incision looks good if unable to make it to f/u appt at [facility]. May need to wait 3 weeks if radiation and chemo drugs slow healing of incision. Patient information: Note initiated : 03/10/22 at 4:03 pm Service Date, if different from initiated Date: [] Patient: Gaudencio Nichols 61 y/o M admitted on 03/08/22 for Hip Fracture . Chief Complaint: Moderate pain. Date of admission: 03/08/22 19:05 Discharge date: 03/11/22 Primary care physician: Mychal Patel COURSE Hospital Course Hospital course: Pt admitted for R hip pathologic fx. Underwent IM nail. discharged to swing bed post-op day 3. Discharge diagnosis: R hip pathologic fx Time Spent with Patient Time attestation: Total time spent providing and/or coordinating discharge services: Time spent: Less than 30 minutes Physical Examination Exam Clean and dry: Yes Weight bearing status: partial DC Instructions-General Patient Instructions Dressing Care: May shower in 2 days Discharge Plan Patient/Caregiver Discharge Instructions Activity: increase activity as tolerated Diet: Regular Diet Prescriptions: New oxycodone 10 mg tablet See Rx Instructions .ROUTE .COMPLEX PRN (Reason: pain) Qty: 60 0RF Rx Instructions: 1-2 tabs q 4-6h prn pain No Action gabapentin [Neurontin] 300 mg capsule 300 mg .ROUTE .COMPLEX Qty: 90 1RF Rx Instructions: Day 1,2,3: Take 1 cap qhs Day 4,5,6: Take 1 cap bid Day 7,8,9: Take 1 cap tid, continue tid if tolerated lisinopril 40 mg Tablet 40 mg PO QDAY alprazolam 1 mg Tablet See Rx Instructions .ROUTE .COMPLEX Rx Instructions: 1 mg orally tadalafil 5 mg PO PRN PRN (Reason: Sexual Activity) fentanyl 62.5 mcg/hour Patch 72 Hour 62.5 mcg transdermal Q72H promethazine 6.25 mg/5 mL Syrup 6.25 mg PO Q6 PRN (Reason: as needed for cough) tamsulosin 0.4 mg Capsule 0.4 mg PO QDAY sofosbuvir-velpatasvir 400-100 mg tablet 1 tab PO QDAY hydrochlorothiazide 12.5 mg Tablet 12.5 mg PO QDAY oxycodone 10 mg Tablet 10 - 20 mg PO Q6H PRN (Reason: Severe pain) albuterol sulfate 90 mcg/actuation Hfa Aerosol Inhaler 2 puff INHALATION Q6H PRN (Reason: Shortness of breath) Other Ambulatory Orders: Physical Therapy Discharge Order (Routine) Location: None Selected Ordered By: Willian Landa (ONCE) Location: None Selected Ordered By: Willian Lemos Follow Up Plan Follow up with: Willian Lemos PA-C [Physician Solar System Designer] - Patient Disposition: [facility] Plan of Treatment: Mobilize with PT tentative discharge planning per case management/hospitalist. Rehab Potential: Good Overall status at discharge: patient is progressing back to baseline Discharge Orders: Discharge Order (Routine); Ordered 03/10/22 Ordered By: Willian Lemos Pending Pending Pending: Resuscitation Status Resuscitate (Full Code) Diet Regular Diet Start Sat Mar 09 1458 Docusate Sodium (Docusate Sodium 100 Mg Capsule) 100 mg PO BID [facility] Last Admin: 03/10/22 10:09 Dose: 100 mg Documented By: Admin: 03/09/22 20:02 Dose: 100 mg Documented By: Admin: 03/09/22 10:15 Dose: 100 mg Documented By: Admin: 03/08/22 23:35 Dose: 100 mg Documented By: ZAIDA Fentanyl (Fentanyl 75 Mcg Patch) 75 mcg TOPICAL Q72H [facility] Last Admin: 03/09/22 11:47 Dose: 75 mcg Documented By: DARCIE Heparin Sodium (Porcine) (Heparin 5,000 Unit/Ml Vial) 5,000 unit SQ Q12 [facility] Last Admin: 03/10/22 08:13 Dose: 5,000 unit Documented By: Admin: 03/09/22 20:02 Dose: 5,000 unit Documented By: ZAIDA Hydralazine HCl (Hydralazine 20 Mg/Ml Vial) 10 mg IV Q4-6HP PRN PRN Reason: Hypertension Last Admin: 03/10/22 12:10 Dose: 10 mg Documented By: Admin: 03/09/22 12:07 Dose: 10 mg Documented By: DARCIE Hydrochlorothiazide (Hydrochlorothiazide 12.5 Mg Capsule) 12.5 mg PO QDAY [facility] Last Admin: 03/10/22 08:13 Dose: 12.5 mg Documented By: Admin: 03/09/22 10:46 Dose: 12.5 mg Documented By: DARCIE Hydromorphone HCl (Hydromorphone 0.5 Mg/0.5 Ml Syringe) 1 mg IV Q2HP PRN; Protocol PRN Reason: Per Pain Protocol Last Admin: 03/10/22 15:13 Dose: 1 mg Documented By: Admin: 03/10/22 11:30 Dose: 1 mg Documented By: Admin: 03/10/22 08:15 Dose: 1 mg Documented By: Admin: 03/10/22 04:41 Dose: 1 mg Documented By: Admin: 03/10/22 02:19 Dose: 1 mg Documented By: Admin: 03/09/22 19:37 Dose: 1 mg Documented By: Admin: 03/09/22 16:53 Dose: 1 mg Documented By: Admin: 03/09/22 12:52 Dose: 1 mg Documented By: DARCIE Sodium Chloride (Sodium Chloride 0.9%) 1,000 mls @ 100 mls/hr IV .Q10H [facility] Last Admin: 03/10/22 11:30 Dose: 100 mls/hr Documented By: Infusion: 03/10/22 05:36 Dose: 100 mls/hr Documented By: Admin: 03/10/22 01:20 Dose: Not Given Documented By: Admin: 03/09/22 19:36 Dose: 100 mls/hr Documented By: Infusion: 03/09/22 19:36 Dose: 100 mls/hr Documented By: Admin: 03/09/22 09:41 Dose: 100 mls/hr Documented By: Infusion: 03/09/22 09:36 Dose: 100 mls/hr Documented By: Admin: 03/09/22 05:28 Dose: Not Given Documented By: Admin: 03/08/22 23:36 Dose: 100 mls/hr Documented By: Infusion: 03/08/22 23:36 Dose: 100 mls/hr Documented By: Admin: 03/08/22 19:16 Dose: 100 mls/hr Documented By: ABILIO Lisinopril (Lisinopril 20 Mg Tablet) 40 mg PO QDAY [facility] Last Admin: 03/10/22 08:13 Dose: 40 mg Documented By: Admin: 03/09/22 10:46 Dose: 40 mg Documented By: DARCIE Oxycodone HCl (Oxycodone Hcl 5 Mg Tablet) 10 mg PO Q4HP PRN; Protocol PRN Reason: Per Pain Protocol Last Admin: 03/10/22 15:12 Dose: 10 mg Documented By: Admin: 03/10/22 08:14 Dose: 10 mg Documented By: Admin: 03/10/22 00:05 Dose: 10 mg Documented By: Admin: 03/09/22 17:03 Dose: 10 mg Documented By: Admin: 03/09/22 05:57 Dose: 10 mg Documented By: ZAIDA Sofosbuvir- Velpatasvir 400-100 Mg Tablet 1 dose PO QDAY [facility] Last Admin: 03/10/22 10:09 Dose: Not Given Documented By: DARCIE Senna (Sennosides 1 Tablet) 2 tab PO HS [facility] Last Admin: 03/09/22 20:02 Dose: 2 tab Documented By: Admin: 03/08/22 23:33 Dose: 2 tab Documented By: ZAIDA Sodium Chloride (0.9 % Sodium Chloride 10 Ml Syringe) 10 ml IV Q8 [facility] Last Admin: 03/10/22 05:20 Dose: Not Given Documented By: Admin: 03/09/22 22:13 Dose: Not Given Documented By: Admin: 03/09/22 16:46 Dose: Not Given Documented By: Admin: 03/09/22 05:28 Dose: Not Given Documented By: Admin: 03/08/22 23:37 Dose: Not Given Documented By: ZAIDA Tamsulosin HCl (Tamsulosin 0.4 Mg Capsule) 0.4 mg PO QDAY [facility] Last Admin: 03/10/22 08:13 Dose: 0.4 mg Documented By: DARCIE Shift Summary 03/10/22 04:57 Shift Summary by Sharon Latham Pt A&O X4. Pt on RA. Pt given X3 1mg of Dilaudid, X1 10mg oxy. Pt stated the oxy does not help him with the pain compared to the Dilaudid and the Dilaudid helps him fall asleep. Pt last BM 03/08 on scheduled bowel regimen. Pt voids in the urinal. Pt able to move RLE with some mild weakness. Pt has ice pack on his right hip. PT to work with pt for mobility. Pt infusing NS at 100ml/hr.Pt on reg ular diet and did get some ensure and snacks overnight. Pt denied any n/v on this shift. Initialized on 03/10/22 04:57 - END OF NOTE
--- NOTE | 2022-03-10 18:04 | EKG ---
[facility] Test Date: 2022-03-08 Pat Name: Gaudencio Nichols Department: MEDSUR Room: 111 Gender: Male [employer] Milling Machine Tender: : 1960 Requested By: Erik Ni Order Number: [id number] Reading MD: Darren Garcia Measurements Intervals [place] Rate: 88 P: 5 GA: 154 QRS: 38 QRSD: 99 T: 35 QT: 390 QTc: 472 Interpretive Statements Sinus rhythm Baseline wander in lead(s) I,aVL Electronically Signed On 03-10-2022 18:04:28 PDT by Darren Garcia /store/M0/[id number]
[2022-03-10] MEDS ORDERED: ASPIRIN 81 MG TAB.CHEW CHEWED SCH (21:00)
[2022-03-10] MEDS: SENNOSIDES 1 TABLET PO SCH (21:17)
[2022-03-10] MEDS: morphine 4 MG/ML VIAL IV PRN (21:30)
[2022-03-11] MEDS: morphine 4 MG/ML VIAL IV PRN ×5 (00:46→13:34)
[2022-03-11] MEDS: oxyCODONE HCL 5 MG TABLET PO PRN (03:17)
[2022-03-11] MEDS: 0.9 % SODIUM CHLORIDE 10 ML SYRINGE IV SCH (06:03)
[2022-03-11 06:56] LABS: Basophils # (Auto) 0.04 K/mcL (0.00-0.30); Basophils % (Auto) 0.4 % (0.0-2.0); Eosinophils # (Auto) 0.29 K/mcL (0.00-0.70); Eosinophils % (Auto) 2.5 % (0.0-7.0); Hematocrit 38.1 % (40.1-51.0); Hemoglobin 12.7 g/dL (13.7-17.5); Lymphocytes # (Auto) 2.28 K/mcL (1.50-4.80); Mean Cell Volume 90.9 fL (80.0-100.0); Mean Corpuscular HGB Conc 33.3 g/dL (31.0-36.0); Monocytes # (Auto) 1.34 K/mcL (0.10-0.90); Monocytes % (Auto) 11.7 % (1.0-12.0); Platelet Count 187 K/mcL (140-440); RBC 4.19 M/mcL (4.63-6.08); Red Cell Distribution Width 12.7 % (11.5-14.5); WBC 11.4 K/mcL (4.5-11.0)
[2022-03-11 07:30] LABS: Blood Urea Nitrogen 15 mg/dL (6-20); Calcium 8.8 mg/dL (8.6-10.4); Carbon Dioxide 25 mmol/L (22-30); Chloride 95 mmol/L (96-108); Glomerular Filtration Rate 109; Glucose 113 mg/dL (70-105)
--- NOTE | 2022-03-11 07:35 | Consultation ---
DATE OF CONSULTATION: 03/08/2022 REASON FOR CONSULTATION: Right hip fracture. HISTORY OF PRESENT ILLNESS: This is a 61-year-old male who has history of hepatitis C, who recently was having a cough that was unresolving. He went in to have it checked out and has found lesions on his lungs. He has since been worked up and found to have metastatic liver cancer. He had fallen about a week ago and had increased pain in his right hip but had been having pain prior to that. He did not seek treatment and today came in for his CT scan for staging of his cancer and was found to have a right hip fracture. He was then transferred down here for orthopedic treatment. PAST MEDICAL HISTORY: Hepatitis C, metastatic hepatic cell carcinoma, history of drug abuse, hypertension, depression. PAST SURGICAL HISTORY: Hernia repair. SOCIAL HISTORY: He is a former smoker, stopped smoking 3 years ago. Does not drink alcohol. He does admit to methamphetamine use. FAMILY HISTORY: Positive for diabetes. MEDICATIONS: 1. Gabapentin 300 mg. ALLERGIES: PENICILLIN AND MORPHINE. PHYSICAL EXAMINATION: General Appearance: He appears older than his stated age, in no acute distress. He is oriented to person and place. Psychiatric: Mood and affect are appropriate. Heart: Regular. Lungs: Clear. Extremities: His right lower extremity shows no significant deformity, however, he is exquisitely tender to palpation up the hip and he has limited range of motion secondary to pain. Skin is intact. Sensation to light touch is grossly intact. Pedal pulses palpable. IMAGING: His x-ray and CT were reviewed from [facility] which shows a base of neck hip fracture with a metastatic lesion in the intertrochanteric region. IMPRESSION: Right closed pathologic base of neck hip fracture secondary to liver metastasis in a 61-year-old male. PLAN: I would recommend we proceed with open treatment and internal fixation using a long intramedullary gamma nail given his metastatic disease as this will give the most extensive internal strut for the bone. I discussed risks of surgery, which include, but not limited to, bleeding; infection; injury to nerves, blood vessels, other surrounding structures; anesthetic risks; nonunion or malunion of the fracture, particularly given the metastatic nature as the cause of the fracture; failure of hardware fixation also being increased given metastatic bone disease and the possibility of needing further surgery. He understands and wished to proceed. He has been cleared by the hospitalist service and has been n.p.o. for more than 8 hours. We will proceed as is possible. BJB:selene Job ID: [id number] Doc ID: [id number] Juan Swain MD
--- NOTE | 2022-03-11 08:42 | Operative Note ---
DATE OF OPERATION: 03/08/2022 PREOPERATIVE DIAGNOSIS: Right pathologic base of femoral neck fracture, closed. POSTOPERATIVE DIAGNOSIS: Right pathologic base of femoral neck fracture, closed. PROCEDURE PERFORMED: Open treatment and internal fixation of the right base of femoral fracture using internal fixation of a long intramedullary Cesar gamma nail, size 10 mm diameter x 420 mm length with a 125-degree neck angle and a 100 mm lag screw. SURGEON: Juan Swain MD GREETER: Ricardo Lemos PA-C. This providers expertise and technical skill were required throughout the case. The PA assisted with preoperative coordination, intraoperative retraction, wound closure, and dressing and splint application, as well as postoperative documentation and care coordination. ANESTHESIA: General. DRAINS: None. SPECIMENS: None. COMPLICATIONS: None. ESTIMATED BLOOD LOSS: 150 mL. POSTOPERATIVE CONDITION: Stable. INDICATIONS FOR SURGERY: This is a 61-year-old male who was recently diagnosed with metastatic liver cancer. He had been having pain going on for a while, but then fell approximately a week ago and had severely increased pain, but did not end up getting imaged until today. A CT scan was done to stage his cancer and he was found to have an acute femoral base of neck fracture. FINDINGS AT SURGERY: Base of femoral fracture. Post-fixation showed near anatomic alignment with hardware in good position. PROCEDURE IN DETAIL: The patient had been seen preoperatively. Informed consent had been obtained after discussion of risks and benefits of surgery. Risks including, but not limited to, bleeding; infection; injury to nerves, blood vessels, other surrounding structures, anesthetic risks; nonunion or malunion of the fracture being increased given the pathologic nature of the fracture; failure of hardware fixation also being increased risk given the poor bone quality from metastatic disease. He understood these risks and wished to proceed. Correct operative site was marked and then patient was taken to the operating room. General anesthesia induced. He was carefully positioned on the fracture table and the right lower extremity was placed with some traction and internal rotation. Left lower extremity was flexed and abducted and placed on a leg roach and carefully padded. Fluoroscopy was brought in to verify adequate reduction, which there was and then the right hip and lower extremity were carefully prepped and draped in normal sterile fashion. A timeout was performed verifying patient name, operative site, and plan. An [place] shower curtain drape was placed. Incision was made proximal to the greater trochanter in line with the femur with a scalpel through skin and subcutaneous tissue. Hemostasis was obtained with Bovie cautery. We continued with Bovie down through the IT band and then finger dissection used to feel onto the tip of the trochanter. A guide pin was placed in the tip of the trochanter. We did use the honeycomb to reposition our guide pin for optimal entry and then once we liked our pin position we used the opening reamer. A ball tip guidewire was passed down the femur. Even though this is a base of neck fracture, we felt due to the metastatic nature of the disease long odalys fixation would give the best bony support, so we passed this down to the level of the superior pole of the patella. We then used a ruler and chose a 420 mm length. We then began reaming sequentially up the femoral canal and a size 12 started getting cortical chatter and on x-ray, it looked like that was filling the canal, so we chose a 10 x 420 mm, 125-degree gamma nail. We then passed the gamma nail over the guide odalys and then adjusted position until we liked the lag screw position proximally. Incision was made where the lag screw sleeve would go through skin and we spread down to bone. We drilled the near cortex and then a threaded guide pin was passed up under fluoroscopic guidance. Adjustments were made until we were central in the head on AP and lateral views. A depth gauge was used and we chose a 100 mm length. The step reamer was then set to 100 and we reamed and then the lag screw was opened. We advanced the lag screw up until we were within 10 mm of the articular surface on both AP and lateral views and we did have excellent bone fixation at that level. Once we liked our fluoro images we advanced the derotational locking breakdown mill operator until it was locked and then verified by trying to turn the lag screw, which we could not and then we backed off 1/4 turn to allow sliding compression. We then removed the handle from the lag screw and guide pin was removed. I did go ahead and place an end cap after we removed the jig. We then removed traction from the leg and went distally. Fluoroscopy was brought in for a perfect circles lateral down distally. A stab incision was made over the static hole. A tonsil was used to spread to bone. Using freehand technique, I drilled through the nail, verified with fluoroscopy and then depth gauged and placed the distal interlocking screw. Fluoroscopy was used to verify through the hole and then final fluoro images were taken, AP and lateral, proximal and distal. These images were saved. We then irrigated copiously with IrriSept, after a minute, irrigated copiously with saline, and then a #1 Vicryl was used to close the IT band proximally, more IrriSept irrigation was done, after a minute more pulse saline, and then 2-0 Monocryl was used for subcutaneous, lamar for skin. Xeroform and sterile dressings were applied. The patient was then awakened, extubated, and transferred to recovery in stable condition. BJB:nuria Job ID: [id number] Doc ID: [id number] Juan Swain MD
[2022-03-11] MEDS: LISINOPRIL 20 MG TABLET PO SCH (09:06)
[2022-03-11] MEDS: HEPARIN 5,000 UNIT/ML VIAL SQ SCH (09:06)
[2022-03-11] MEDS: DOCUSATE SODIUM 100 MG CAPSULE PO SCH (09:06)
[2022-03-11] MEDS: HYDROCHLOROTHIAZIDE 12.5 MG CAPSULE PO SCH (09:06)
[2022-03-11] MEDS: TAMSULOSIN 0.4 MG CAPSULE PO SCH (09:06)
[2022-03-11] MEDS: SOFOSBUVIR VELPATASVIR PO SCH (09:07)
[2022-03-11] MEDS: 0.9 % SODIUM CHLORIDE 1,000 ML IV SCH (09:11)
--- NOTE | 2022-03-11 10:15 | Discharge Summary ---
Discharge Provider Provider IMPORTANT FOLLOW-UP INFORMATION FOR PCP: Patient information: Note initiated : 03/11/22 at 10:12 am Service Date, if different from initiated Date: [] Patient: Gaudencio Nichols 61 y/o M admitted on 03/08/22 for Hip Fracture . Chief Complaint: [] Date of admission: 03/08/22 19:05 Discharge date: 03/11/22 Primary care physician: Mychal Patel Attending physician on admission: Erik Ni Attending physician on discharge: Erik Ni COURSE Hospital Course Hospital course: Mr. Nichols is a 61 year old M history of drug abuse, hepatitis C, metastatic hepatic cell carcinoma, presenting with fall with right sided hip fracture. Patient fell about a week ago and today repeat imaging with PET CT as part of the cancer surveillance reviewed right hand femoral neck fracture. He was in same area ER and the ER physicians contacted the orthopedic surgeons Dr. Etienne who would be willing to do a nail fixations. Patient would be admitted to my service with Dr. Etienne be consulted for the surgical management. Physical therapy and occupational therapy will be consulted for post-surgical evaluation and assessment. 03/09: s/p IM nail placement by Dr. Etienne for right hip pathologic fracture 03/08. Patient is c/o 8/10 sharp pain of his right hip. Denies SOB. Denies constipation. Increase Dilaudid from 0.5 to 1mg IV q2hr PRN severe pain. Also have Fentanyl patch and oxycodone for better symptoms control. Continue physical therapy evaluation and treatment and for placement planning. 03/10: s/p 7/10 pain of the right pain. No bowel movement overnight. OT recs. home when discharged. Add cyclobenzaprine PRN muscle spasm. Continue Fentanyl patch, oxycodone, and Dilaudid IV PRN different severity of pain. Continue laxative/stool softeners PRN constipation. Will keep patient in hospital for better pain control before discharging home. 03/11: Discharged home. PCP and orthopedic follow up appointments made for him. Rx given. All questions answered prior to patient being physically discharged. Discharge diagnosis: right hip fracture Time Spent with Patient Time attestation: Total time spent providing and/or coordinating discharge services: Time spent: Less than 30 minutes EXAM Constitutional Vitals: Temp Pulse Resp BP Pulse Ox O2 Del Method O2 Flow Rate 37.4 C H 87 18 119/79 91 2 03/11/22 06:55 03/11/22 06:55 03/11/22 06:55 03/11/22 06:55 03/11/22 06:55 03/11/22 06:55 03/09/22 15:42 General appearance: cooperative and no acute distress Head Head exam: Present atraumatic and normocephalic Eye Eye exam: Present EOMI and PERRL ENT ENT exam: Present mucous membranes moist, normal exam and normal external ear exam Neck Neck exam: Present normal inspection; Absent lymphadenopathy, tenderness or thyromegaly Respiratory Respiratory exam: Absent accessory muscle use, respiratory distress or wheezes Cardiovascular Cardiovascular exam: Present normal rate and rhythm; Absent JVD GI/Abdominal GI/Abdominal exam: Present normal bowel sounds and soft; Absent organomegaly or tenderness Rectal Rectal exam: Present deferred Extremities Exam Extremities exam: Present normal capillary refill; Absent full ROM, normal inspection or tenderness Additional comments: right lateral hip covered by surgical dressing. Active and passive ROMs limited by pain Neurological Exam Neurological exam: Present alert, CN II-XII intact and oriented X3; Absent motor sensory deficit Psychiatric Psychiatric exam: Present normal affect and normal mood; Absent anxious or depressed Skin Skin exam: Present dry and intact Discharge Data Data Completed and Pending Labs on day of discharge: Labs from last 24 hours 03/11/22 03/11/22 06:07 06:07 WBC 11.4 H RBC 4.19 L Hgb 12.7 L Hct 38.1 L MCV 90.9 MCH 30.3 MCHC 33.3 RDW 12.7 Plt Count 187 MPV 10.0 Immature Gran % (Auto) 0.4 Neut % (Auto) 65.0 Lymph % (Auto) 20.0 [place] % (Auto) 11.7 Eos % (Auto) 2.5 Baso % (Auto) 0.4 Lymph # (Auto) 2.28 [place] # (Auto) 1.34 H Eos # (Auto) 0.29 Baso # (Auto) 0.04 Immature Gran # 0.05 Absolute Neutrophils 7.46 Sodium 130 L Potassium 4.2 Chloride 95 L Carbon Dioxide 25 Anion Gap 10.0 BUN 15 Creatinine 0.6 L GFR Calculation 109 Glucose 113 H Calcium 8.8 Discharge Plan Patient/Caregiver Discharge Instructions Activity: increase activity as tolerated Diet: Regular Diet Prescriptions: New oxycodone 10 mg tablet See Rx Instructions .ROUTE .COMPLEX PRN (Reason: pain) Qty: 60 0RF Rx Instructions: 1-2 tabs q 4-6h prn pain cyclobenzaprine 10 mg Tablet 10 mg PO BIDP PRN (Reason: Muscle Spasm) Qty: 20 0RF Continued gabapentin [Neurontin] 300 mg capsule 300 mg .ROUTE .COMPLEX Qty: 90 1RF Rx Instructions: Day 1,2,3: Take 1 cap qhs Day 4,5,6: Take 1 cap bid Day 7,8,9: Take 1 cap tid, continue tid if tolerated lisinopril 40 mg Tablet 40 mg PO QDAY alprazolam 1 mg Tablet See Rx Instructions .ROUTE .COMPLEX Rx Instructions: 1 mg orally tadalafil 5 mg PO PRN PRN (Reason: Sexual Activity) fentanyl 62.5 mcg/hour Patch 72 Hour 62.5 mcg transdermal Q72H promethazine 6.25 mg/5 mL Syrup 6.25 mg PO Q6 PRN (Reason: as needed for cough) tamsulosin 0.4 mg Capsule 0.4 mg PO QDAY sofosbuvir-velpatasvir 400-100 mg tablet 1 tab PO QDAY hydrochlorothiazide 12.5 mg Tablet 12.5 mg PO QDAY oxycodone 10 mg Tablet 10 - 20 mg PO Q6H PRN (Reason: Severe pain) albuterol sulfate 90 mcg/actuation Hfa Aerosol Inhaler 2 puff INHALATION Q6H PRN (Reason: Shortness of breath) Other Ambulatory Orders: Physical Therapy Discharge Order (Routine) Location: None Selected Ordered By: Willian Landa (ONCE) Location: None Selected Ordered By: Willian Lemos Follow Up Plan Follow up with: Willian Lemos PA-C [Physician Auto Bench Mechanic] - Mychal Patel MD [Primary Care Provider] - Patient Disposition: Home, Self-Care Plan of Treatment: Mobilize with PT tentative discharge planning per case management/hospitalist. Rehab Potential: Good I certify that the patient requires SNF services: No Overall status at discharge: patient is progressing back to baseline Discharge Orders: Discharge Order (Routine); Ordered 03/11/22 Ordered By: Willian Lemos QUALITY VTE Deep Vein Thrombosis/Pulmonary Embolism Present on Admission: No
== END 2022-03-11 13:20 | disposition home or self-care (01) | DRG 481 ==
LOC: MEDSUR 19:05
PROVIDERS: ADMIT Internal Medicine; ATTEND Internal Medicine